=== PATIENT | male | born 1950 | race Caucasian/White ===

== ENCOUNTER 2020-05-18 14:50 | Emergency (ER) | payer MEDICARE, OTHER ==
--- NOTE | 2020-05-18 15:16 | ED Physician Documentation ---
PD HPI FOCAL NEURO - Stated complaint Stated Complaint: FALL, L LEG WEAK, FACE DROOP - Chief complaint Chief Complaint: Neuro - History obtained from History obtained from: Patient, Family - History of Present Illness Timing - onset: Today Time of symptom onset unknown: Time of onset unknown Severity of deficit: Mild Weakness: Face, Left. No: Arm, Hand, Leg Numbness: No: Face, Arm, Hand, Leg, Foot, Right, Left Associated symptoms: Fall, Head injury (Unclear if he struck his head or not). No: Headache, Nausea / vomiting, Seizure, Syncope, Chest pain, Neck pain Contributing factors: negative: Anticoagulated, Vascular dz, Atrial fibrillation Baseline status: positive: A&OX3, ambulatory, indep Similar symptoms before: Has not had sx before Recently seen: Not recently seen - Additional information Additional information: 69-year-old male presents to the emergency department stating that he has had difficulty with his legs "giving out on him" for the past several weeks. He states that worsened yesterday. Today he was walking when the left leg gave out on him and he tripped and fell. When he stood up, the family thinks that there may be a slight left-sided facial droop, though they are not fully confident in this. He did not have any difficulty speaking. No numbness or tingling. No loss of bowel or bladder control. No paralysis. No speech changes. Review of Systems Constitutional: denies: Fever, Chills Cardiac: denies: Chest pain / pressure Respiratory: denies: Cough, Wheezing GI: denies: Abdominal Pain, Nausea, Vomiting : denies: Dysuria Skin: denies: Rash Musculoskeletal: denies: Neck pain, Back pain Neurologic: reports: Head injury (fell). denies: Numbness, Syncope, Seizure, Confused, Altered mental status, Headache, LOC PD PAST MEDICAL HISTORY - Past Medical History Past Medical History: Yes Cardiovascular: Hypertension - Allergies Allergies/Adverse Reactions: Allergies Allergy/AdvReac Type Severity Reaction Status Date / Time No Known Drug Allergies Allergy Verified 05/18/20 17:07 PD ED PE NORMAL - Vitals Vital signs reviewed: Yes - General General: Alert and oriented X 3, No acute distress, Well developed/nourished - HEENT HEENT: Atraumatic, PERRL, Ears normal, Moist mucous membranes, Pharynx benign - Neck Neck: Supple, no meningeal sign - Cardiac Cardiac: RRR, Strong equal pulses - Respiratory Respiratory: No respiratory distress, Clear bilaterally - Abdomen Abdomen: Soft, Non tender, Non distended - Derm Derm: Warm and dry - Extremities Extremities: No deformity, No tenderness to palpate, Normal ROM s pain - Neuro Neuro: Alert and oriented X 3, 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, No sensory deficit, Normal speech, Other (mild droop to the corner of the mouth on the left.) - Psych Psych: Normal mood, Normal affect Results - Vitals Vitals: Vital Signs - 24 hr 05/18/20 05/18/20 05/18/20 15:00 15:08 15:38 Temperature 36.5 C Heart Rate 66 40 L 40 L Respiratory 18 19 18 Rate Blood Pressure 207/127 H 197/75 H 173/75 H O2 Saturation 98 100 99 05/18/20 05/18/20 05/18/20 16:08 16:30 17:00 Temperature 36.8 C Heart Rate 37 L 38 L 39 L Respiratory 19 20 19 Rate Blood Pressure 197/85 H 198/79 H 215/75 H O2 Saturation 99 98 99 Oxygen O2 Source Room air - EKG (time done) 1522 Rate: Rate (enter#) (40) Rhythm: Other (junctional rhythm) QRS: LVH Ischemia: ST elevation c/w repol - Labs Labs: Laboratory Tests 05/18/20 05/18/20 05/18/20 15:22 15:22 15:22 WBC 10.5 RBC 4.82 Hgb 15.2 Hct 46.8 MCV 97.1 H MCH 31.5 H MCHC 32.5 RDW 14.1 Plt Count 432 MPV 9.5 Neut # (Auto) 8.4 H Lymph # (Auto) 1.4 L [place] # (Auto) 0.5 Eos # (Auto) 0.1 Baso # (Auto) 0.1 Absolute Nucleated RBC 0.00 Nucleated RBC % 0.0 Sodium 139 Potassium 3.4 L Chloride 100 L Carbon Dioxide 26 Anion Gap 13.0 BUN 15 Creatinine 0.9 Estimated GFR (MDRD) 83 L Glucose 117 H Calcium 9.1 Total Bilirubin 0.6 AST 15 ALT 10 Alkaline Phosphatase 85 Troponin I High Sens 40.9 H* Total Protein 8.5 H Albumin 3.8 Globulin 4.7 H Albumin/Globulin Ratio 0.8 L Urine Color Urine Clarity Urine pH Ur Specific Jackpot Urine Protein Urine Glucose (UA) Urine Ketones Urine Occult Blood Urine Nitrite Urine Bilirubin Urine Urobilinogen Ur Leukocyte Esterase Urine RBC Urine WBC Ur Squamous Epith Cells Urine Bacteria Ur Microscopic Review Urine Culture Comments SARS-CoV-2 (PCR) 05/18/20 05/18/20 16:45 16:45 WBC RBC Hgb Hct MCV MCH MCHC RDW Plt Count MPV Neut # (Auto) Lymph # (Auto) [place] # (Auto) Eos # (Auto) Baso # (Auto) Absolute Nucleated RBC Nucleated RBC % Sodium Potassium Chloride Carbon Dioxide Anion Gap BUN Creatinine Estimated GFR (MDRD) Glucose Calcium Total Bilirubin AST ALT Alkaline Phosphatase Troponin I High Sens Total Protein Albumin Globulin Albumin/Globulin Ratio Urine Color YELLOW Urine Clarity CLEAR Urine pH 6.0 Ur Specific Jackpot 1.015 Urine Protein 100 H Urine Glucose (UA) NEGATIVE Urine Ketones NEGATIVE Urine Occult Blood NEGATIVE Urine Nitrite NEGATIVE Urine Bilirubin NEGATIVE Urine Urobilinogen 1 (NORMAL) Ur Leukocyte Esterase NEGATIVE Urine RBC None Seen Urine WBC 0-3 Ur Squamous Epith Cells NONE SEEN Urine Bacteria None Seen Ur Microscopic Review INDICATED Urine Culture Comments NOT INDICATED SARS-CoV-2 (PCR) NOT DETECTED PD MEDICAL DECISION MAKING - ED course Complexity details: reviewed results, re-evaluated patient, considered differential, d/w patient, d/w [facility] iam consultant ED course: Patient is a 69-year-old male who increasing weakness over the past several weeks and feeling like his legs are giving out on him. He has felt near syncopal at times. Has not lost consciousness however. Noted to be in a junctional rhythm in the emergency department. External pacer pads were placed on the patient. His head CT reveals a likely old lesion in the caudate. Patient states that he has a history of hypertension but does not take his medications any longer. He does not really see his doctor often. Discussed the case with [facility] cardiology, Dr. Cedillo. 162 - D/w Dr. Cedillo, cardiology at [facility], who recommends transfer for further evaluation to the hospitalized. 1635 - D/w. Dr. Bhagat, Hospitalist who graciously accepts in transfer. CT head 1. No intracranial hemorrhage or definite loss of merritt-white matter differentiation. No imaging contraindications to TPA. 2. Small hypodensity in the right caudate head consistent with a small lacunar infarct of indeterminate acuity. Further evaluation may be obtained with an MRI if clinically indicated. 3. Moderate chronic white matter small vessel ischemic changes and mild cerebral volume loss. CT angiogram head 1. Scattered atherosclerotic calcifications of the intracranial segments of the bilateral internal carotid arteries with less than 50% stenosis on the right and moderate/high- grade stenosis on the left involving the supraclinoid branch of the left internal carotid artery. The visualized middle cerebral arteries and anterior cerebral arteries appear widely patent. 2. Atherosclerotic calcifications of the posterior circulation without hemodynamically significant stenosis. CT angiogram neck Scattered atherosclerotic calcifications of the extracranial carotid vasculature. There is approximately 50% stenosis at the origin of the left internal carotid artery. There is greater than 50% but less than 70% stenosis at the origin of the right internal carotid artery with short segment of moderate stenosis of the proximal right internal artery. No occlusion or dissection. Scattered atherosclerosis of the vertebral arteries without hemodynamically significant stenosis. Cervical spine without acute fracture or malalignment. Multilevel cervical spondylosis. The estimate of stenosis included in the report of the imaging study was calculated using the NASCET method Departure - Departure Disposition: 02 Transfer Acute Care Hosp Clinical Impression: Junctional escape rhythm, Facial droop Fall Qualifiers: Encounter type: initial encounter Qualified Code(s): W19.XXXA - Unspecified fall, initial encounter Hypertension Qualifiers: Hypertension type: unspecified Qualified Code(s): I10 - Essential (primary) hypertension Condition: Stable Discharge Date/Time: 05/18/20 15:15
[2020-05-18] MEDS ORDERED: LABETALOL 20 MG/4 ML SYRINGE IVP STA (15:18)
--- NOTE | 2020-05-18 15:24 | CT Report ---
PROCEDURE: Head W/O Stroke Protocol INDICATIONS: fall, head injury, L facial droop TECHNIQUE: Noncontrast 4.5 mm thick angled axial sections acquired from the foramen magnum to the vertex, with c oronal reformats. For radiation dose reduction, the following was used: automated exposure control, adjustment of mA and/or kV according to patient size. COMPARISON: FINDINGS: Image quality: Excellent. CSF spaces: Basal cisterns are patent. No extra-axial fluid collections. There is mild cerebral vo lume loss with prominence of ventricles and sulci. Brain: No intracranial hemorrhage, mass, or mass effect. Jensen-white matter interface appears preserv ed. There is a small focal hypodensity in the right caudate head compatible with a small lacunar infa rct of indeterminate acuity. There are subcortical and periventricular white matter hypodensities con sistent with moderate chronic small vessel ischemic changes. Skull and face: Calvarium and visualized facial bones are intact, without suspicious lesions. Sinuses: Visualized sinuses and mastoids are clear. IMPRESSION: 1. No intracranial hemorrhage or definite loss of jensen-white matter differentiation. No imaging contr aindications to TPA. 2. Small hypodensity in the right caudate head consistent with a small lacunar infarct of indetermina te acuity. Further evaluation may be obtained with an MRI if clinically indicated. 3. Moderate chronic white matter small vessel ischemic changes and mild cerebral volume loss. Findings discussed Dr. Medina on 05/18/2020 3:20 PM. This study fulfills neurological imaging criteria for inclusion or exclusion of acute stroke therapie s based on available published neurological imaging guidelines. Reviewed by: Mohsen Abad MD on 05/18/2020 3:22 PM PST Approved by: Mohsen Abad MD on 05/18/2020 3:22 PM PST Station ID: [id number]
[2020-05-18 15:29] LABS: BASOPHILS # (AUTO) 0.1 10^3/uL (0.0-0.1); BASOPHILS % (AUTO) 0.6 %; EOSINOPHILS # (AUTO) 0.1 10^3/uL (0.0-0.7); EOSINOPHILS % (AUTO) 0.5 %; HGB - HEMOGLOBIN 15.2 g/dL (14.0-18.0); LYMPHOCYTES # (AUTO) 1.4 10^3/uL (1.5-3.5); LYMPHOCYTES % (AUTO) 13.3 %; MEAN CORPUSCULAR HEMOGLOBIN 31.5 pg (27.0-31.0); MEAN CORPUSCULAR HGB CONC 32.5 g/dL (32.0-36.0); MEAN CORPUSCULAR VOLUME 97.1 fL (80.0-94.0); MEAN PLATELET VOLUME 9.5 fL (7.4-11.4); MONOCYTES # (AUTO) 0.5 10^3/uL (0.0-1.0); MONOCYTES % (AUTO) 4.7 %; NEUTROPHILS # (AUTO) 8.4 10^3/uL (1.5-6.6); NEUTROPHILS % (AUTO) 80.2 %; PLT - PLATELET COUNT 432 10^3/uL (130-450); RED BLOOD COUNT 4.82 10^6/uL (4.70-6.10); RED CELL DISTRIBUTION WIDTH 14.1 % (12.0-15.0); WHITE BLOOD COUNT 10.5 x10^3/uL (4.8-10.8)
[2020-05-18 15:40] LABS: ALBUMIN 3.8 g/dL (3.2-5.5); ALBUMIN/GLOBULIN RATIO 0.8 (1.0-2.2); BILIRUBIN,TOTAL 0.6 mg/dL (0.2-1.0); CALCIUM 9.1 mg/dL (8.5-10.3); CREATININE 0.9 mg/dL (0.6-1.2); TOTAL PROTEIN 8.5 g/dL (6.7-8.2)
[2020-05-18] MEDS ORDERED: IOVERSOL 320 100 ML VIAL IVP ONE ×2 (16:02→16:25)
[2020-05-18 16:56] LABS: BILIRUBIN,URINE NEGATIVE (NEGATIVE); CLARITY,URINE CLEAR (CLEAR); GLUCOSE, URINE (UA) NEGATIVE (NEGATIVE); KETONES,URINE (UA) NEGATIVE (NEGATIVE); LEUKOCYTE ESTERASE, URINE NEGATIVE (NEGATIVE); NITRITE,URINE NEGATIVE (NEGATIVE); OCCULT BLOOD,URINE NEGATIVE (NEGATIVE); PROTEIN,URINE 100 mg/dL (NEGATIVE); UROBILINOGEN,URINE 1 (NORMAL) E.U./dL (NORMAL)
--- NOTE | 2020-05-18 16:59 | CT Report ---
PROCEDURE: ANGIO HEAD W/WO INDICATIONS: L sided facial droop CONTRAST: IV CONTRAST: Optiray 320 ml: 80 PO CONTRAST: *NO PO CONTRAST TECHNIQUE: Precontrast 4.5 mm thick angled axial sections acquired from the foramen magnum to the vertex. Afte r the administration of intravenous contrast, 1 mm thick sections acquired through the [place] of [place] is. Postcontrast 4.5 mm thick sections then re-acquired from the foramen magnum to the vertex. 3-di mensional dcdtjqo-bhfjwflbs-rpthtxmktc (MIP) and/or volume rendering reformats were acquired of the c entral intracranial vasculature. For radiation dose reduction, the following was used: automated ex posure control, adjustment of mA and/or kV according to patient size. COMPARISON: CT head from earlier same day FINDINGS: Image quality: Excellent. Anterior circulation: Moderate atherosclerotic calcifications of the bilateral intracranial segments of the internal carotid arteries. There is less than 50% stenosis on the right. There is moderate st enosis on the left within the supraclinoid segment. No occlusion. The flow within the paired anterior cerebral arteries is normal and symmetric. The flow within the middle cerebral arteries is normal a nd symmetric. The anterior communicating artery is seen. No aneurysms are seen. Posterior circulation: Visualized portions of the vertebral arteries demonstrate normal caliber, and join to form a normal appearing basilar artery. Scattered atherosclerotic calcifications of the kailee tebral arteries without hemodynamically significant stenosis. Flow within the posterior cerebral ansley eduardo is symmetric. No aneurysms are seen. CSF spaces: Ventricles are normal in size and shape. Basal cisterns are patent. No extra-axial flu id collections. Brain: No midline shift. No intracranial bleeds or masses. Jensen-white matter interface appears int act. Skull and face: Calvarium and facial bones appear intact, without suspicious lesions. Sinuses: Visualized sinuses and mastoids are clear. IMPRESSION: 1. Scattered atherosclerotic calcifications of the intracranial segments of the bilateral internal ca rotid arteries with less than 50% stenosis on the right and moderate/high-grade stenosis on the left involving the supraclinoid branch of the left internal carotid artery. The visualized middle cerebral arteries and anterior cerebral arteries appear widely patent. 2. Atherosclerotic calcifications of the posterior circulation without hemodynamically significant st enosis. Reviewed by: Herminio Christiansen MD on 05/18/2020 3:58 PM AKST Approved by: Herminio Christiansen MD on 05/18/2020 3:58 PM AKST Station ID: [id number]
[2020-05-18 17:04] LABS: BACTERIA,URINE None Seen /HPF (None Seen); RBC,URINE None Seen /HPF (0-5); SQUAMOUS EPITHELIAL CELL,UR NONE SEEN (<= Few)
[2020-05-18 17:07] VITALS: BP 215/75
--- NOTE | 2020-05-18 17:16 | CT Report ---
PROCEDURE: ANGIO NECK W INDICATIONS: L sided facial droop CONTRAST: IV CONTRAST: Optiray 320 ml: 80 PO CONTRAST: *NO PO CONTRAST TECHNIQUE: After the administration of intravenous contrast, 1.5 mm axial sections acquired from the aortic arch to the [place] of [place]. Coronal 3-D maximum intensity projection (MIP) and/or volume rendering ref ormats were then performed. For radiation dose reduction, the following was used: automated exposur e control, adjustment of mA and/or kV according to patient size. COMPARISON: None. FINDINGS: Image quality: Excellent. Carotid system: The great vessels demonstrate a conventional anatomy as they arise from the aortic a rc. Moderate scattered atherosclerotic calcifications of the aortic arch. The origins of the common carotid arteries appear patent. The common carotid arteries demonstrate normal calibers and courses . There are dense atherosclerotic calcifications at the carotid bifurcations bilaterally. There is a pproximately 50% stenosis at the origin of the left internal carotid artery. There is greater than 50 % but less than 70% stenosis at the origin of the right internal carotid artery with short segment of narrowing involving the proximal right internal carotid artery. No evidence for occlusion or dissect ion. Posterior circulation: There are atherosclerotic calcifications at the origins of the vertebral arter ies without hemodynamically significant stenosis. The more superior portions of the vertebral arterie s demonstrate normal course and caliber. They join to form a normal appearing basilar artery. Soft tissues: Visualized neck soft tissues demonstrate no suspicious abnormalities. The thyroid gla nd is unremarkable in appearance. No adenopathy. There are moderate pulmonary emphysematous changes o f the right lung apices. Bones: No suspicious bony lesions. Visualized cervical spine appears normally aligned. No acute c ompression fractures of the vertebral bodies. Multilevel cervical spondylosis. IMPRESSION: Scattered atherosclerotic calcifications of the extracranial carotid vasculature. There is approximat dalia 50% stenosis at the origin of the left internal carotid artery. There is greater than 50% but les s than 70% stenosis at the origin of the right internal carotid artery with short segment of moderate stenosis of the proximal right internal artery. No occlusion or dissection. Scattered atherosclerosis of the vertebral arteries without hemodynamically significant stenosis. Cervical spine without acute fracture or malalignment. Multilevel cervical spondylosis. The estimate of stenosis included in the report of the imaging study was calculated using the NASCET method Reviewed by: Herminio Christiansen MD on 05/18/2020 4:15 PM [place] Approved by: Herminio Christiansen MD on 05/18/2020 4:15 PM [facility] Station ID: [id number]
== END 2020-05-18 15:15 | disposition short-term general hospital (02) ==
LOC: ED 14:50
DX: I49.8 Other specified cardiac arrhythmias (principal); I10 Essential (primary) hypertension; R53.1 Weakness; R29.810 Facial weakness; Z91.81 History of falling; Z86.73 Personal history of transient ischemic attack (TIA), and cerebral infarction without residual deficits; Z20.828 Contact with and (suspected) exposure to other viral communicable diseases; M47.812 Spondylosis without myelopathy or radiculopathy, cervical region
CPT/HCPCS: 36415; 70450; 70496; 70498; 80053; 81001; 84484; 85025; 92953; 93005; 99284; 99285; Q9967; U0004; 81003; 87086

== ENCOUNTER 2020-05-18 17:16 | Outpatient (CLI) | payer MEDICARE, OTHER | END 2020-05-18 17:17 | disposition short-term general hospital (02) | LOC: EMS 17:16 | PROVIDERS: ATTEND Surgery | DX: R00.1 Bradycardia, unspecified (principal); R47.81 Slurred speech; R29.810 Facial weakness | CPT/HCPCS: A0425; A0426 ==